=== PATIENT | female | born 2000 | race Caucasian/White ===

== ENCOUNTER 2018-08-11 10:20 | Emergency (ER) | END 2018-08-11 13:34 | disposition home or self-care (01) ==

== ENCOUNTER 2018-08-13 15:05 | Emergency (ER) | END 2018-08-13 17:41 | disposition home or self-care (01) ==

== ENCOUNTER 2018-08-15 18:12 | Emergency (ER) | END 2018-08-15 20:25 | disposition home or self-care (01) ==

== ENCOUNTER 2018-08-17 10:28 | Emergency (ER) | END 2018-08-17 13:22 | disposition home or self-care (01) ==